=== PATIENT | female | born 1955 | race Caucasian/White ===

== ENCOUNTER → 2016-07-11 | Outpatient (CLI) | payer OTHER | END | disposition home or self-care (01) | LOC: MMGSC 15:59 | PROVIDERS: ATTEND Family Medicine | DX: J02.9 Acute pharyngitis, unspecified (principal) | CPT/HCPCS: 87070 ==

== ENCOUNTER → 2016-12-13 | Outpatient (CLI) | payer OTHER ==
[2016-12-13 19:00] LABS: Basophils # (A) 0.1 k/uL (0-0.2); Basophils % (A) 1 %; CH 25.2; CHCM 31.4; Eosinophils # (A) 0.8 k/uL (0-0.7); Eosinophils % (A) 9 %; HCT 43.9 % (34.0-46.0); HDW 2.67; HGB 13.7 gm/dL (11.4-16.0); Hypochromasia Slight; Luc # (Auto) 0.19; Luc % (Auto) 2; Lymphocytes # (A) 2.5 k/uL (1.0-4.8); Lymphocytes % (A) 28 %; MCH 25.2 pg (25.0-35.0); MCHC 31.3 g/dL (31.0-37.0); MCV 80.7 fL (80.0-100.0); Mean Platelet Volume 9.5; Monocytes # (A) 0.4 k/uL (0-1.0); Monocytes % (A) 5 %; Neutrophils % (A) 55 %; RBC 5.44 m/uL (3.80-5.40); RDW 14.7 % (11.5-15.5); WBC (Perox) 9.61
[2016-12-13 19:10] LABS: ALT 34 U/L (9-52); AST 23 U/L (14-36); Alkaline Phosphatase 130 U/L (38-126); Anion Gap 13 mmol/L; Blood Urea Nitrogen 9 mg/dL (7-17); Calcium 9.5 mg/dL (8.4-10.2); Carbon Dioxide 23 mmol/L (22-30); Chloride 104 mmol/L (98-107); Cholesterol 156 mg/dL (<200); Glucose 162 mg/dL (74-99); HDL Cholesterol 43 mg/dL (40-60); Non-African American GFR(MDRD) >60 (>60 ml/min/1.73 sqM); Potassium 4.1 mmol/L (3.5-5.1); Sodium 140 mmol/L (137-145); Total Bilirubin 0.6 mg/dL (0.2-1.3); Total Protein 6.5 g/dL (6.3-8.2); Triglycerides 270 mg/dL (<150)
[2016-12-13 19:41] LABS: Hemoglobin A1C 8.1 % (4.2-6.1)
== END | disposition home or self-care (01) ==
LOC: MMGSC 11:08
PROVIDERS: ATTEND Family Medicine
DX: E11.9 Type 2 diabetes mellitus without complications (principal); I10 Essential (primary) hypertension; E78.5 Hyperlipidemia, unspecified
CPT/HCPCS: 36415; 80053; 80061; 83036; 84439; 84443; 85025

== ENCOUNTER 2016-12-31 15:55 | Emergency (ER) | payer OTHER ==
[2016-12-31 16:09] VITALS: RESP 18
--- NOTE | 2016-12-31 16:28 | ED ---
General Adult HPI - General Chief complaint: Extremity Injury, Upper Stated complaint: LEFT HAND PAIN Time Seen by Provider: 12/31/16 16:12 Source: patient, RN notes reviewed Mode of arrival: ambulatory Limitations: no limitations - History of Present Illness Initial comments: Patient's a 61-year-old female who presents emergency room today with a chief complaint of injury to the left ring finger that occurred yesterday. She states she was walking and slipped on a rock jamming her left finger. She does admit that she's had increased swelling some pain with movement today. Patient denies any other injury or complaint. Patient denies any recent fever, chills, shortness of breath, chest pain, back pain, abdominal pain, nausea or vomiting, numbness or tingling, dysuria or hematuria, constipation or diarrhea, headaches or visual changes, or any other complaints. - Related Data Home Medications Medication Instructions Recorded Confirmed Atorvastatin [Lipitor] 20 mg PO HS 12/31/16 12/31/16 Empagliflozin [Jardiance] 10 mg PO DAILY 12/31/16 12/31/16 Glimepiride [Amaryl] 2 mg PO DAILY 12/31/16 12/31/16 Valsartan/Hydrochlorothiazide 1 tab PO DAILY 12/31/16 12/31/16 [Valsartan-Hctz 80-12.5 mg Tab] Venlafaxine HCl ER [Effexor Xr] 75 mg PO DAILY 12/31/16 12/31/16 Previous Rx's Medication Instructions Recorded Ibuprofen [Motrin] 600 mg PO Q6HR PRN #40 day 12/31/16 Allergies Allergy/AdvReac Type Severity Reaction Status Date / Time iron Allergy Rash/Hives Verified 12/31/16 16:30 phenytoin [From Dilantin] Allergy Rash/Hives Verified 12/31/16 16:30 Sulfa (Sulfonamide Allergy Rash/Hives Verified 12/31/16 16:30 Antibiotics) Review of Systems ROS Statement: Those systems with pertinent positive or pertinent negative responses have been documented in the HPI. ROS Other: All systems not noted in ROS Statement are negative. Past Medical History Past Medical History: No Reported History, Diabetes Mellitus Additional Past Medical History / Comment(s): brain tumor benign History of Any Multi-Drug Resistant Organisms: None Reported Past Surgical History: Ear Surgery Additional Past Surgical History / Comment(s): brain surg mastoid Past Psychological History: No Psychological Hx Reported, Anxiety Smoking Status: Never smoker Past Alcohol Use History: Occasional Past Drug Use History: None Reported General Exam - General Exam Comments Initial Comments: General: The patient is awake and alert, in no distress, and does not appear acutely ill. Neck: The neck is supple, there is no tenderness or JVD. Cardiovascular: There is a regular rate and rhythm. No murmur, rub or gallop is appreciated. Respiratory: Lungs are clear to auscultation, respirations are non-labored, breath sounds are equal. No wheezes, stridor, rales, or rhonchi. Musculoskeletal: Patient does have mild swelling to the left ring finger. Shows good range of motion both flexion and extension. Sensations are intact pulses equal bilaterally 2+. No specific bony tenderness on exam. Cap refill unable to be assessed due to nail nicaraguan. Neurological: A&O x 3. CN II-XII intact, There are no obvious motor or sensory deficits. Coordination appears grossly intact. Speech is normal. Skin: Skin is warm and dry and no rashes or lesions are noted. Psychiatric: Normal mood and affect. Limitations: no limitations Course Vital Signs 12/31/16 16:04 Temperature 97.7 F Pulse Rate 90 Respiratory 18 Rate Blood Pressure 132/78 O2 Sat by Pulse 99 Oximetry Medical Decision Making - Medical Decision Making Patient's x-ray reviewed does show small avulsion type fracture of the proximal left ring finger. Results were discussed with the patient. Patient given finger splint here in the emergency room and advised to follow-up with orthopedics for further evaluation. Advised to return if any symptoms increase or worsen or for any other concerns. Disposition Clinical Impression: Finger fracture, left Disposition: HOME SELF-CARE Condition: Good Instructions: Finger Fracture (ED) Additional Instructions: Please follow-up with orthopedics over the next 2 days. Please continue to ice elevate the affected area as discussed. Please return to emergency room if any symptoms increase or worsen or for any other concerns. Prescriptions: Ibuprofen [Motrin] 600 mg PO Q6HR PRN #40 day PRN Reason: Pain Referrals: Radha Browning MD [Primary Care Provider] - 1-2 days Wes Mariano DO [Doctor of Osteopathic Medicine] - 1-2 days Time of Disposition: 16:58
--- NOTE | 2016-12-31 16:51 | XR ---
Left hand HISTORY: Pain and swelling 3 views of the left knee Bone mineralization and alignment are maintained. Joint spaces are within normal limits. Mild osteoar thritic change present at the carpometacarpal joint of the first digit. There is a small ossific dens ity present at the medial aspect of the distal portion of the proximal phalanx of the fourth digit of the left hand which may represent small chip fracture, there is associated soft tissue swelling. Ernesto ency present along the distal aspect of the middle phalanx of the fifth digit of the left hand medial ly is noted on one view. IMPRESSION: Small fracture present at the distal fourth proximal phalanx. Possible hairline fracture. Digit is described.
[2016-12-31 17:16] VITALS: BP 147/73; PULSE 56; TEMP 97.8
== END 2016-12-31 17:16 | disposition home or self-care (01) ==
LOC: EC 15:55
DX: S62.615A Displaced fracture of proximal phalanx of left ring finger, initial encounter for closed fracture (principal); E11.9 Type 2 diabetes mellitus without complications; F41.9 Anxiety disorder, unspecified; Z79.84 Long term (current) use of oral hypoglycemic drugs; Z79.899 Other long term (current) drug therapy; Z88.2 Allergy status to sulfonamides; Z88.8 Allergy status to other drugs, medicaments and biological substances; W01.0XXA Fall on same level from slipping, tripping and stumbling without subsequent striking against object, initial encounter
CPT/HCPCS: 99283

== ENCOUNTER → 2017-05-28 | Outpatient (CLI) | payer OTHER ==
--- NOTE | 2017-05-29 11:39 | MM ---
Reason for exam: screening (asymptomatic). Last mammogram was performed 1 year and 2 months ago. History: Patient is postmenopausal. Family history of breast cancer in grandmother at age 50 and breast cancer in sister at age 50. Excisional biopsy of the left breast, 1999. Physical Findings: A clinical breast exam by your physician is recommended on an annual basis and results should be correlated with mammographic findings. MG 3D Screening Mammo W/Cad Bilateral CC and MLO view(s) were taken. Prior study comparison: April 11, 2016, bilateral MG 3d screening mammo w/cad. November 30, 2015, mammogram, performed at [facility]. February 25, 2015, mammogram, performed at [facility]. December 29, 2013, mammogram, performed at [facility]. The breast tissue is heterogeneously dense. This may lower the sensitivity of mammography. There is a 7-8mm mass in the upper outer quadrant of the left breast creating distortion medial to the biopsy marker 6.7cm from nipple on CC with a second smaller mass just anterior measuring 3-4mm. No suspicious abnormality in the right breast. ASSESSMENT: Incomplete: need additional imaging evaluation, BI-RAD 0 RECOMMENDATION: Special view mammogram and ultrasound of the left breast. [facility] will attempt to contact patient to return for supplemental views and ultrasound.
== END | disposition home or self-care (01) ==
LOC: RADMAMWWP 14:56
PROVIDERS: ATTEND Family Medicine
DX: Z12.31 Encounter for screening mammogram for malignant neoplasm of breast (principal)
CPT/HCPCS: 77063; 77067

== ENCOUNTER → 2017-06-05 | Outpatient (CLI) | payer OTHER ==
--- NOTE | 2017-06-05 11:16 | MM ---
Reason for exam: additional evaluation requested from abnormal screening. Last mammogram was performed less than 1 month ago. History: Patient is postmenopausal. Family history of breast cancer in grandmother at age 50 and breast cancer in sister at age 50. Excisional biopsy of the left breast, 1999. 2 benign stereotactic core biopsies of the left breast. Physical Findings: Nurse did not find any significant physical abnormalities on exam. MG 3D Work Up W/Cad LT Spot compression CC, spot compression MLO, and ML view(s) were taken of the left breast. Prior study comparison: May 28, 2017, bilateral MG 3d screening mammo w/cad. April 11, 2016, bilateral MG 3d screening mammo w/cad. Spiculated nodule upper outer quadrant left breast 7.5cm from nipple. Ultrasound is recommended. These results were verbally communicated with the patient and result sheet given to the patient on 06/05/17. ASSESSMENT: Incomplete: need additional imaging evaluation, BI-RAD 0 RECOMMENDATION: Ultrasound of the left breast.
--- NOTE | 2017-06-05 11:18 | USB ---
Reason for exam: additional evaluation requested from abnormal screening. History: Patient is postmenopausal. Family history of breast cancer in grandmother at age 50 and breast cancer in sister at age 50. Excisional biopsy of the left breast, 1999. 2 benign stereotactic core biopsies of the left breast. US Breast Workup Limited LT Left breast ultrasound demonstrates a 0.8 x 0.8 x 0.8cm round, spiculated, solid lesion at 1 o'clock. These results were verbally communicated with the patient and result sheet given to the patient on 06/05/17. ASSESSMENT: Highly suggestive of malignancy, BI-RAD 5 RECOMMENDATION: Ultrasound core biopsy of the left breast. Patient requests to speak with Dr. Virgen to discuss biopsy and will contact herself. PRELIMINARY REPORT CALLED AND FAXED TO DR. VIRGEN ON 06/05/17.
== END | disposition home or self-care (01) ==
LOC: RADMAMWWP 09:30
PROVIDERS: ATTEND Family Medicine
DX: R92.8 Other abnormal and inconclusive findings on diagnostic imaging of breast (principal)
CPT/HCPCS: 77065; 76642; G0279